=== PATIENT | female | born 1955 | race Caucasian/White ===

== ENCOUNTER 2017-02-23 08:26 | Day surgery (SDC) | payer OTHER ==
--- NOTE | 2017-02-17 10:44 | EKG REPORT ---
SEVERITY:- NORMAL ECG - SINUS RHYTHM : Confirmed by: Bibiana Martinez 17-Feb-2017 10:44:18
[2017-02-17 11:21] LABS: ABSOLUTE EOSINOPHILS # (AUTO) 0.1 10^3/uL (0.0-0.6); ABSOLUTE LYMPHOCYTES (AUTO) 1.6 10^3/uL (0.5-4.7); ABSOLUTE MONOCYTES (AUTO) 0.5 10^3/uL (0.1-1.4); ABSOLUTE NEUT (AUTO) 3.5 10^3/uL (1.7-8.2); BASOPHILS % (AUTO) 0.5 % (0-2); EOSINOPHILS % (AUTO) 2.3 % (0-6); HEMATOCRIT 43.1 % (36.0-47.0); HEMOGLOBIN 14.2 g/dL (12.0-15.5); HGB HCT DIFFERENCE -0.5; LYMPHOCYTES % (AUTO) 28.1 % (13-45); MEAN CORPUSCULAR HEMOGLOBIN 28.5 pg (27.0-33.4); MEAN CORPUSCULAR VOLUME 86 fl (80-97); MONOCYTES % (AUTO) 8.3 % (3-13); RED BLOOD COUNT 4.99 10^6/uL (3.72-5.28); RED CELL DISTRIBUTION WIDTH 14.5 % (11.5-14.0); SEGMENTED NEUTROPHILS % (AUTO) 60.8 % (42-78); WHITE BLOOD COUNT 5.8 10^3/uL (4.0-10.5)
[2017-02-17 11:25] LABS: APPEARANCE,URINE CLEAR; BILIRUBIN,URINE NEGATIVE (NEGATIVE); GLUCOSE, URINE NEGATIVE (NEGATIVE); KETONES,URINE NEGATIVE (NEGATIVE); LEUKOCYTE ESTERASE,URINE NEGATIVE (NEGATIVE); NITRITE,URINE NEGATIVE (NEGATIVE); PROTEIN,URINE NEGATIVE (NEGATIVE); URINE SPECIFIC GRAVITY 1.004; UROBILINOGEN,URINE NEGATIVE mg/dL (<2.0)
[2017-02-17 11:40] LABS: ANION GAP 13 (5-19); BLOOD UREA NITROGEN 11 mg/dL (7-20); CALCIUM 11.1 mg/dL (8.4-10.2); CARBON DIOXIDE 30 mmol/L (22-30); CHLORIDE 103 mmol/L (98-107); CREATININE RESULT 0.61 mg/dL (0.52-1.25); GLUCOSE 87 mg/dL (75-110); POTASSIUM 4.9 mmol/L (3.6-5.0)
--- NOTE | 2017-02-17 11:48 | RADIOLOGY REPORT (SQ) ---
EXAM DESCRIPTION: CHEST PA/LATERAL COMPLETED DATE/TIME: 02/17/2017 10:37 am REASON FOR STUDY: PRE OP COMPARISON: None. EXAM PARAMETERS: NUMBER OF VIEWS: two views TECHNIQUE: Digital Frontal and Lateral radiographic views of the chest acquired. RADIATION DOSE: NA LIMITATIONS: none FINDINGS: LUNGS AND PLEURA: No opacities, masses or pneumothorax. No pleural effusion. MEDIASTINUM AND HILAR STRUCTURES: No masses or contour abnormalities. HEART AND VASCULAR STRUCTURES: Heart normal size. No evidence for failure. BONES: No acute findings. HARDWARE: None in the chest. OTHER: No other significant finding. IMPRESSION: NO SIGNIFICANT RADIOGRAPHIC FINDING IN THE CHEST. TECHNICAL DOCUMENTATION: JOB ID: [id number] [employer]- All Rights Reserved
[~2017-02-23 08:26] MED LIST: CEFAZOLIN 2 GM/D5W RTU 2 GM/50 ML RTUPB IV PRN; LACTATED RINGERS 1000 ML IV PRN; LIDOCAINE 0.5% INJ-PF (5 MG/ML) 50 ML SDV SUBCUT PRN
[2017-02-23] MEDS ORDERED: ONDANSETRON HCL INJ/PF 4 MG/2 ML SDV ONE (08:57)
[2017-02-23] MEDS ORDERED: GLYCOPYRROLATE INJ 0.4 MG/2 ML VIAL ONE (08:57)
[2017-02-23] MEDS ORDERED: LIDOCAINE 2% INJ-PF (20 MG/ML) 10 ML AMPUL ONE (08:57)
[2017-02-23] MEDS ORDERED: ROCURONIUM BROMIDE INJ 50 MG/5 ML VIAL IV ONE (08:57)
[2017-02-23] MEDS ORDERED: NEOSTIGMINE METHYLSULFATE 10 MG/10 ML VIAL ONE (08:57)
[2017-02-23] MEDS ORDERED: SCOPOLAMINE HYDROBROMIDE 1.5 MG PATCH.TD72 ONE (09:11)
[2017-02-23] MEDS ORDERED: MIDAZOLAM 2 MG/2 ML INJ ONE ×2 (12:05→12:45)
[2017-02-23] MEDS ORDERED: BUPIVACAINE HCL 0.5 % INJ/PF 30 ML SDV ONE (12:12)
--- NOTE | 2017-02-23 12:31 | Operative Report ---
Operative Report PREOPERATIVE DIAGNOSIS: LEFT distal radius malunion POSTOPERATIVE DIAGNOSIS: LEFT distal radius malunion OPERATION: Correction of LEFT distal radius malunion with use of proximal tibial autograft SURGEON: KRISTEN SWENSON ANESTHESIA: GA COMPLICATIONS: None ESTIMATED BLOOD LOSS: 50cc PROCEDURE: Indication for above procedure: 61-year-old female who sustained a fall onto her outstretched left wrist. Patient sustained an extra-articular distal radius fracture which was treated conservatively. However over a period of time she had collapsed in a radial direction at that point we discussed treatment options and I recommended operative intervention. Risks and benefits of the operative procedure were explained to the patient who verbalized understanding and consented for the procedure.
[2017-02-23] MEDS ORDERED: FENTANYL CITRATE INJ/PF 100 MCG/2 ML AMPUL ONE ×2 (12:45→15:58)
[2017-02-23] MEDS ORDERED: PROPOFOL INJ 200 MG/20 ML VIAL IV ONE (12:45)
[2017-02-23] MEDS ORDERED: HYDROMORPHONE HCL INJ/PF 2 MG/ML AMPULE ONE (12:45)
[2017-02-23] MEDS ORDERED: ACETAMINOPHEN 100 ML IV ONE (12:46)
[2017-02-23] MEDS ORDERED: IBUPROFEN INJ 800 MG/8 ML VIAL IV ONE (12:46)
[2017-02-23] MEDS ORDERED: FENTANYL CITRATE INJ/PF 100 MCG/2 ML AMPUL IV PRN ×3 (13:38)
[2017-02-23] MEDS ORDERED: MORPHINE SULFATE 10 MG/ML INJ IV PRN (13:38)
[2017-02-23] MEDS ORDERED: DIPHENHYDRAMINE HCL 50 MG/ML VIAL IV PRN (13:38)
[2017-02-23] MEDS ORDERED: MEPERIDINE HCL/PF INJ 25 MG/1 ML DISP.SYRIN IV PRN (13:38)
[2017-02-23] MEDS ORDERED: PROMETHAZINE HCL INJ 25 MG/1 ML VIAL IV PRN (13:38)
[2017-02-23] MEDS ORDERED: OXYCODONE-ACETAMINOPHEN 5-325 MG TABLET PO PRN (16:04)
[2017-02-23] MEDS ORDERED: HYDROMORPHONE HCL INJ/PF 2 MG/ML AMPULE IV PRN (16:04)
--- NOTE | 2017-02-23 16:05 | PDOC DISCHARGE SUMMARY ---
Discharge Summary (SDC) - Discharge Final Diagnosis: Left Distal Radius Malunion Date of Surgery: 02/23/17 Discharge Date: 02/23/17 Condition: Good Treatment or Instructions: Schedule Follow Up w/ Dr. Dean Chapa @ [facility] to be seen in 10-14 days or as scheduled [place]: [place]vas: [place]: Ice and elevate Keep splint clean/dry/intact. If your fingers become numb please unwrap the Sal wrap but leave the splint in place, if the sensation does not return within 30 minutes please return to the emergency department. May begin finger range of motion attempting to make full fist. Please use ibuprofen (Motrin or Advil) 600-800 mg every 8 hours as needed for pain or fever. You may also use acetaminophen (Tylenol) 1000 mg every 4-6 hours as needed for pain or fever. Please be aware that many medications contain acetaminophen, do not exceed a total of 1000 mg of acetaminophen every 6 hours. If ibuprofen and acetaminophen are not sufficient for your pain you may take the Percocet. Please be aware that the Percocet does contain Tylenol. Stool softener of choice when on pain medication. Prescriptions: Oxycodone HCl/Acetaminophen [Percocet 5-325 mg Tablet] 1 - 2 tab PO ASDIR PRN # 50 tablet PRN Reason: Referrals: JUANITO ADLER PA [Primary Care Provider] - Discharge Diet: As Tolerated Respiratory Treatments at Home: Deep Breathing/Coughing, Incentive Spirometer Discharge Activity: No Lifting Over 10 Pounds, No Lifting/Push/Pulling Adaptive Devices on Discharge: Axillary Crutches - Weight Bearing As Tolerated Left Leg Report the Following to Your Physician Immediately: Increase in Pain, Fever over 101 Degrees, Unusual Bleeding, Redness, Swelling, Warmth, Increased Soreness
[2017-02-23] MEDS: HYDROMORPHONE HCL INJ/PF 2 MG/ML AMPULE ONE ×7 (16:10→17:10)
--- NOTE | 2017-02-23 16:24 | Operative Report ---
Operative Report DATE OF SURGERY: 02/23/17 PREOPERATIVE DIAGNOSIS: Left distal radius malunion POSTOPERATIVE DIAGNOSIS: Same OPERATION: Corrective osteotomy left distal radius with proximal tibia autogenous bone grafting SURGEON: KRISTEN SWENSON ANESTHESIA: GA COMPLICATIONS: None ESTIMATED BLOOD LOSS: 50cc PROCEDURE: Indication for above procedure: 61-year-old female who sustained a fall onto her outstretched left wrist. Patient sustained an extra-articular distal radius fracture which was treated conservatively. However over a period of time she had collapsed in a radial direction at that point we discussed treatment options and I recommended operative intervention. Risks and benefits of the operative procedure were explained to the patient who verbalized understanding and consented for the procedure. Procedure In Detail: Patient was seen and evaluated in the preoperative holding area. The LEFT upper extremity was initialized and marked. Patient received 2g of Ancef IV for bacterial prophylaxis. Patient was taken back to the operative room where transferred to the operative table and placed under general anesthesia. Once they were adequately anesthetized a nonsterile tourniquet was placed on the upper extremity. A surgical team debriefing was performed ensuring all instrumentation was available, the surgical procedure was discussed with possible concerns reviewed. The upper extremity was prepped with chlorhexidine and alcohol and draped in a sterile fashion. A timeout was done identifying correct patient, procedure and extremity everyone in attendance agree with this and verbalized no concerns. C-arm fluoroscopy was obtained of the nonoperative right wrist to confirm appropriate radial height intraoperatively. The extremity was exsanguinated the tourniquet was inflated to 250 mmHg. A longitudinal skin incision was made via a volar approach of Larry along the FCR tendon sheath. The FCR tendon sheath was opened and the FCR retracted ulnarly, the palmar cutaneous branch of the median nerve was identified and protected throughout the entirety of the case. The radial artery was identified and retracted radially. Blunt dissection was performed to the FPL which was carefully sweeped ulnarly. This brought me to the pronator quadratus which was elevated off of the distal radius via sharp dissection with a 15 blade to allow later repair. The brachioradialis was then elevated and released taking special care to avoid injury to the underlying first dorsal compartment tendons. Once adequately released the previous fracture line was noted. With C arm the osteotomy was localized. I then placed a Acumed standard plate along the anatomic plane of the distal radius. This was then secured with K wires. AP and lateral projections were obtained confirming appropriate placement of the plate. Utilizing oscillating saw the volar cortex was cut parallel to the planned osteotomy site. I then completed the cut with an osteotome. The distal fragment was freed of soft tissue and elevated. The Acumed plate was then once again placed a large tenaculum successfully brought the plate flush to the volar cortex. The plate was then secured with a bicortical screw distally. The remaining holes were drilled to but not through the far cortex to ensure no dorsal penetration which could cause extensor tendon irritation. Under C-arm fluoroscopy the radial styloid screws were drilled and the appropriate size locking screw. The previous bicortical screw was switched and a locking screw of the appropriate size was placed. Once distal fixation was complete a lamina manager of application development was placed within the osteotomy site to elevate the fracture to its more anatomic position. I then secured the plate proximally with a bone clamp C arm fluoroscopy was then obtained which demonstrated acceptable reduction of the radial alignment with jain of radial height, inclination and volar tilt. Patient had +1 ulnar variance which is equivalent to the noninjured right wrist. The plate was then secured proximally with bicortical fixation within the dynamic hole. A second bicortical screw was placed in the most proximal hole further providing fixation. Lastly a bicortical locking screw was placed in the distal most hole in the proximal segment. This provided excellent fixation of my fracture. There was a notable void radially thus the decision was made to place autogenous bone graft. The wound was copiously irrigated with normal saline the tourniquet was deflated any peripheral bleeding was controlled with bipolar cautery and a saline sponge was placed within the wound. Under C-arm fluoroscopy [place]'s tubercle was localized. A oblique skin incision was made over tourist tubercle. Blunt dissection was performed any peripheral venous vasculature was coagulated with bipolar cautery. I then delineated the cortical window for bone grafting. With an osteotome a small cortical segment was carefully elevated exposing the underlying cancellus bone. The cancellus bone was then removed and placed on the back table. C-arm fluoroscopy was obtained confirming extra-articular removal of the cancellus bone. The wound was then copiously irrigated with normal saline. The defect was filled with allograft cancellus bone chips. I previous cortical window was secured with 2-0 Vicryl through the periosteum. Skin was closed with a running subcuticular 3-0 Monocryl reinforced with Dermabond and Steri-Strips. 10 cc of 0.5% Marcaine with epinephrine was injected for postoperative pain control. Final fluoroscopy radiographs were obtained confirming bone grafting of the defect without violation of the articular surface. The wrist wound was once again irrigated with normal saline. The defect was visualized and packed with autogenous bone graft and cancellus allograft bone chips. The defect was successfully filled mostly with autogenous bone graft. Final fluoroscopy demonstrated jain of radial height inclination and volar tilt with equivalent ulnar variance compared to the nonoperative right wrist. Intraoperative examination demonstrates no evidence of DRUJ instability on examination, Negative Escoto's test, No crepitus with range of motion at the radiocarpal joint or DRUJ. I then closed the pronator quadratus with interrupted 3-0 Monocryl suture. Subcutaneous tissues were closed with interrupted 4-0 Monocryl suture. The skin was closed with a running subcuticular 4-0 Monocryl suture which was reinforced with Dermabond and Steri- Strips. 20 mL of 0.5% Marcaine were injected for postoperative pain control. Wound was dressed with sterile 4 x 4's and patient was placed in a well-padded volar splint with bias wrap. Sponge counts, instrument counts and needle counts were correct. There was no intraoperative complications patient tolerated procedure well stable to PACU. Postoperative plan: Patient will be switched to a Exos brace at her first postoperative appointment will obtain radiographs of her left wrist at that time.
--- NOTE | 2017-02-23 17:01 | RADIOLOGY REPORT (SQ) ---
EXAM DESCRIPTION: NO CHG FLUORO; WRIST LEFT 3 VIEWS COMPLETED DATE/TIME: 02/23/2017 3:56 pm REASON FOR STUDY: ORIF LEFT WRIST ASSISTED WITH FLUORO IN OR COMPARISON: None. FLUOROSCOPY TIME: 1.1 minute 8 Images saved to PACS LIMITATIONS: None. PROCEDURE: Images document the placement of a volar compression plate on the distal radius with mult iple screws. 3 comparison image of the right wrist was. Image of the knee the site of a bone graft harvest was obtained. FINDINGS: ORIF distal radius. Refer to operative report for further detail. IMPRESSION: ORIF distal radius. COMMENT: [id number]: Fluoroscopy time of the procedure is documented in the report. TECHNICAL DOCUMENTATION: JOB ID: [id number] [employer]- All Rights Reserved
--- NOTE | 2017-02-23 17:01 | RADIOLOGY REPORT (SQ) ---
EXAM DESCRIPTION: NO CHG FLUORO; WRIST LEFT 3 VIEWS COMPLETED DATE/TIME: 02/23/2017 3:56 pm REASON FOR STUDY: ORIF LEFT WRIST ASSISTED WITH FLUORO IN OR COMPARISON: None. FLUOROSCOPY TIME: 1.1 minute 8 Images saved to PACS LIMITATIONS: None. PROCEDURE: Images document the placement of a volar compression plate on the distal radius with mult iple screws. 3 comparison image of the right wrist was. Image of the knee the site of a bone graft harvest was obtained. FINDINGS: ORIF distal radius. Refer to operative report for further detail. IMPRESSION: ORIF distal radius. COMMENT: [id number]: Fluoroscopy time of the procedure is documented in the report. TECHNICAL DOCUMENTATION: JOB ID: [id number] [employer]- All Rights Reserved
[2017-02-23 19:52] VITALS: BP 130/82
== END 2017-02-23 19:38 | disposition home or self-care (01) ==
LOC: OROUT 08:26
PROVIDERS: ATTEND Orthopaedic Surgery
PROC: 0PUJ07Z Supplement Left Radius with Autologous Tissue Substitute, Open Approach (ICD-10-PCS; 2017-02-23)
PROC: 0PSJ04Z Reposition Left Radius with Internal Fixation Device, Open Approach (ICD-10-PCS; principal; 2017-02-23 11:00)
DX: S52.532P Colles' fracture of left radius, subsequent encounter for closed fracture with malunion (principal); X58.XXXD Exposure to other specified factors, subsequent encounter; R01.1 Cardiac murmur, unspecified; E78.00 Pure hypercholesterolemia, unspecified; Z85.3 Personal history of malignant neoplasm of breast; Z79.899 Other long term (current) drug therapy
CPT/HCPCS: 93005; 36415; 85025; 80048; 81001; 71020; 73110; 93010; 25350; C1713 ×3; J2250; J3490 ×2; J3010; J1170; J2405; J2704; J0690; J0131; J1741; 01830